=== PATIENT | male | born 1940 | race Hispanic/Latino ===

== ENCOUNTER 2017-07-14 12:52 | Inpatient (IN) | payer MEDICARE ==
[~2017-07-14] VITALS: Ht 165.1 cm; Wt 86.3 kg
[~2017-07-14 12:52] MED LIST: AMLO5TAB2 PO; ATOR40TA71 PO; DOCU100C19 PO; FERR325T22 PO; FINA5TAB41 PO; FURO20TA4 PO; GABA-531 PO; HYDR-4060 PO; ISOS60TA4 PO; LISI-617 PO; NITR0.4T50 SL; PANT40TA PO; RIVA20TA PO
[2017-07-14] MEDS ORDERED: SODIUM CHLORIDE 0.9% 1000ML 1,000 ML IV ONE ×2 (13:16→16:50)
[2017-07-14 13:20] LABS: BASOPHILS % (AUTO) 0.4 % (0.0-5.0); EOSINOPHILS % (AUTO) 0.8 % (0.0-8.0); HEMATOCRIT 39.6 % (42-54); LYMPHOCYTES % (AUTO) 8.9 % (21.0-51.0); MEAN CORPUSCULAR HGB CONC 33.3 g/dL (32.0-36.0); NEUTROPHILS % (AUTO) 81.9 % (40.0-77.0); PLATELET COUNT (AUTO) 206 K/uL (130-400); RED BLOOD CELL COUNT(AUTO) 4.39 MIL/uL (4.50-6.20); RED CELL DISTRIBUTION WIDTH 14.6 % (11.0-15.5); WHITE BLOOD COUNT (AUTO) 14.5 K/uL (4.8-10.8)
[2017-07-14 13:30] LABS: CREATININE 1.4 mg/dL (0.5-1.5)
[2017-07-14 14:45] LABS: APPEARANCE,URINE TURBID (CLEAR); BILIRUBIN,URINE MODERATE (NEGATIVE); COLOR,URINE YELLOW (YELLOW); GLUCOSE, URINE (UA) NEGATIVE (NEGATIVE); KETONES,URINE 15 mg/dL (NEGATIVE); LEUKOCYTE ESTERASE ,URINE LARGE (NEGATIVE); NITRATE,URINE POSITIVE (NEGATIVE); OCCULT BLOOD,URINE LARGE (NEGATIVE); PH,URINE 5.5 (5.0-8.0); PROTEIN,URINE >=300 (NEGATIVE)
[2017-07-14 15:01] LABS: BACTERIA,URINE Few /HPF (None Seen)
[2017-07-14 15:02] LABS: RBC,URINE >100 /HPF (0-1); SQUAMOUS EPITHELIAL CELL,UR Rare /HPF (0-2); WBC,URINE 51-100 /HPF (0-1)
[2017-07-14] MEDS ORDERED: CEFTRIAXONE SODIUM 1 GM ONE (15:40)
[2017-07-14 18:02] VITALS: BP 119/69
[2017-07-14] MEDS: SODIUM CHLORIDE 0.9% 1000ML 1,000 ML IV SCH (18:15)
[2017-07-14] MEDS ORDERED: ACETAMINOPHEN 325 MG TAB PO PRN ×2 (18:30)
[2017-07-14] MEDS ORDERED: ONDANSETRON HCL MDV 20ML 2 MG/ML VIAL IVP PRN (18:30)
[2017-07-14] MEDS ORDERED: LACTULOSE 20 GM/30 ML UDCUP PO PRN (18:30)
[2017-07-14] MEDS ORDERED: CLONIDINE HCL 0.1 MG TABLET PO PRN (18:30)
[2017-07-14 19:37] VITALS: BP 110/69
[2017-07-14] MEDS ORDERED: GLUCAGON 1MG KIT 1 MG ML IM PRN (22:00)
[2017-07-14] MEDS ORDERED: DEXTROSE 50%-WATER 50 ML DISP.SYRIN IV PRN (22:00)
[2017-07-15] VITALS: BP 107/62
[2017-07-15] MEDS ORDERED: POTASSIUM CHLORIDE 20MEQ/100ML 100 ML IV PRN (00:30)
[2017-07-15] MEDS ORDERED: CEFTRIAXONE 1GM/D5W 50ML 50 ML IV SCH (00:30)
[2017-07-15] MEDS ORDERED: IPRATROPIUM/ALBUTEROL SULFATE 3 ML SOLUTION IH PRN (00:30)
[2017-07-15] MEDS ORDERED: POTASSIUM CHLORIDE 10% ELIXIR 20 MEQ/15 ML UDCUP PO PRN (00:30)
[2017-07-15] MEDS ORDERED: HYDRALAZINE HCL 20 MG/ML VIAL IV PRN (00:30)
[2017-07-15] MEDS ORDERED: POTASSIUM CHLORIDE 20 MEQ ERTAB PO PRN (00:30)
[2017-07-15] MEDS ORDERED: LIDOCAINE HCL-MPF 1% 2ML VIAL IVP PRN (00:30)
[2017-07-15] MEDS ORDERED: LISI10TA7 PO (01:52)
[2017-07-15] MEDS ORDERED: METO25TA6 PO (01:52)
[2017-07-15 04:34] VITALS: BP 127/71
[2017-07-15] MEDS: SODIUM CHLORIDE 0.9% 1000ML 1,000 ML IV SCH (05:55)
[2017-07-15 06:47] LABS: HEMATOCRIT 37.1 % (42-54); MEAN CORPUSCULAR HEMOGLOBIN 31.4 pg (27.0-33.0); MEAN CORPUSCULAR VOLUME 89.8 fL (79-99); PLATELET COUNT (AUTO) 181 K/uL (130-400); RED BLOOD CELL COUNT(AUTO) 4.14 MIL/uL (4.50-6.20); RED CELL DISTRIBUTION WIDTH 14.1 % (11.0-15.5); WHITE BLOOD COUNT (AUTO) 11.6 K/uL (4.8-10.8)
[2017-07-15 06:56] LABS: POTASSIUM 4.1 mmol/L (3.5-5.1)
[2017-07-15] MEDS: INSULIN HUMULIN R 100 UNIT/ML 3ML SQ SCH ×4 (07:30→20:35)
[2017-07-15 08:00] VITALS: BP 136/72
[2017-07-15] MEDS: FAMOTIDINE 20MG TAB 20 MG TAB PO SCH (09:38)
[2017-07-15 11:44] VITALS: BP 151/87
[2017-07-15] MEDS: CEFTRIAXONE SODIUM 1 GM IVP SCH (15:00)
[2017-07-15] MEDS: GABAPENTIN 300 MG CAPSULE PO SCH ×2 (15:01→21:19)
[2017-07-15] MEDS: METOPROLOL TARTRATE 25 MG TAB PO SCH ×2 (15:01→17:57)
[2017-07-15] MEDS: PHENAZOPYRIDINE HCL 200 MG TABLET PO SCH ×2 (15:01→21:19)
[2017-07-15 16:42] VITALS: BP 149/75
[2017-07-15 19:25] VITALS: BP 149/89
[2017-07-15] MEDS: ATORVASTATIN CALCIUM 40 MG TABLET PO SCH (21:19)
[2017-07-16] VITALS (7 sets, daily range): BP systolic 92–161; BP diastolic 47–96
[2017-07-16 05:20] LABS: BASOPHILS % (AUTO) 0.5 % (0.0-5.0); EOSINOPHILS % (AUTO) 3.6 % (0.0-8.0); HEMATOCRIT 39.5 % (42-54); LYMPHOCYTES % (AUTO) 15.8 % (21.0-51.0); MEAN CORPUSCULAR HGB CONC 33.4 g/dL (32.0-36.0); MEAN CORPUSCULAR VOLUME 89.7 fL (79-99); MONOCYTES % (AUTO) 8.6 % (3.0-13.0); NEUTROPHILS % (AUTO) 71.5 % (40.0-77.0); PLATELET COUNT (AUTO) 192 K/uL (130-400); RED CELL DISTRIBUTION WIDTH 14.4 % (11.0-15.5)
[2017-07-16 05:32] LABS: CREATININE 0.9 mg/dL (0.5-1.5); POTASSIUM 3.8 mmol/L (3.5-5.1)
[2017-07-16] MEDS: INSULIN HUMULIN R 100 UNIT/ML 3ML SQ SCH ×4 (06:24→21:00)
[2017-07-16] MEDS: FUROSEMIDE 20 MG TABLET PO SCH (08:12)
[2017-07-16] MEDS: RIVAROXABAN 20 MG TABLET PO SCH (08:12)
[2017-07-16] MEDS: ISOSORBIDE MONO 60 MG TAB.SR PO SCH (08:12)
[2017-07-16] MEDS: FAMOTIDINE 20MG TAB 20 MG TAB PO SCH (08:12)
[2017-07-16] MEDS: PHENAZOPYRIDINE HCL 200 MG TABLET PO SCH ×3 (08:17→21:25)
[2017-07-16] MEDS: GABAPENTIN 300 MG CAPSULE PO SCH ×3 (08:17→21:25)
[2017-07-16] MEDS: FINASTERIDE 5 MG TABLET PO SCH (09:00)
[2017-07-16] MEDS: METOPROLOL TARTRATE 25 MG TAB PO SCH ×2 (12:00→16:52)
[2017-07-16] MEDS: CEFTRIAXONE SODIUM 1 GM IVP SCH (16:52)
[2017-07-16] MEDS: ATORVASTATIN CALCIUM 40 MG TABLET PO SCH (21:25)
[2017-07-17 00:40] VITALS: BP 150/81
[2017-07-17 02:41] LABS: APPEARANCE,URINE Clear (CLEAR); BILIRUBIN,URINE Small (NEGATIVE); COLOR,URINE Orange (YELLOW); GLUCOSE, URINE (UA) Negative (NEGATIVE); KETONES,URINE Negative (NEGATIVE); LEUKOCYTE ESTERASE ,URINE Small (NEGATIVE); NITRATE,URINE Positive (NEGATIVE); OCCULT BLOOD,URINE Negative (NEGATIVE); PH,URINE 5.5 (5.0-8.0); PROTEIN,URINE Negative (NEGATIVE)
[2017-07-17 02:48] LABS: BACTERIA,URINE None Seen /HPF (None Seen); RBC,URINE None Seen /HPF (0-1); SQUAMOUS EPITHELIAL CELL,UR Few /HPF (0-2)
[2017-07-17 04:30] VITALS: BP 142/77
[2017-07-17 05:57] LABS: HEMATOCRIT 38.3 % (42-54); MEAN CORPUSCULAR HGB CONC 34.7 g/dL (32.0-36.0); MEAN CORPUSCULAR VOLUME 89.4 fL (79-99); NUCLEATED RED BLOOD CELLS 0.1 % (0.0-0.19); PLATELET COUNT (AUTO) 200 K/uL (130-400); RED BLOOD CELL COUNT(AUTO) 4.29 MIL/uL (4.50-6.20); RED CELL DISTRIBUTION WIDTH 14.2 % (11.0-15.5); WHITE BLOOD COUNT (AUTO) 8.5 K/uL (4.8-10.8)
[2017-07-17 06:12] LABS: CREATININE 1.1 mg/dL (0.5-1.5)
[2017-07-17] MEDS: INSULIN HUMULIN R 100 UNIT/ML 3ML SQ SCH ×4 (06:38→21:00)
[2017-07-17 07:21] LABS: EOSINOPHILS % (MANUAL) 8 % (1-6); LYMPHOCYTES % (MANUAL) 15 % (22-44); MAN.DIFF COMMENT-IMPRESSION MANUAL DIFFERENTIAL; MONOCYTES % (MANUAL) 7 % (2-9); PLATELET MORPHOLOGY COMMENT ADEQUATE; REACTIVE LYMPHOCYTES 3 % (0-0); SEGMENTED NEUTROPHILS % 67 % (40-70)
[2017-07-17 08:00] VITALS: BP 132/85
[2017-07-17] MEDS: ISOSORBIDE MONO 60 MG TAB.SR PO SCH (09:53)
[2017-07-17] MEDS: RIVAROXABAN 20 MG TABLET PO SCH (09:54)
[2017-07-17] MEDS: FINASTERIDE 5 MG TABLET PO SCH (09:54)
[2017-07-17] MEDS: FUROSEMIDE 20 MG TABLET PO SCH (09:54)
[2017-07-17] MEDS: FAMOTIDINE 20MG TAB 20 MG TAB PO SCH (09:54)
[2017-07-17] MEDS: GABAPENTIN 300 MG CAPSULE PO SCH ×3 (09:54→21:42)
[2017-07-17] MEDS: PHENAZOPYRIDINE HCL 200 MG TABLET PO SCH ×2 (09:54→14:20)
[2017-07-17 11:00] VITALS: BP 133/56
[2017-07-17] MEDS: METOPROLOL TARTRATE 25 MG TAB PO SCH ×3 (14:20→19:28)
[2017-07-17 16:00] VITALS: BP 139/69
[2017-07-17] MEDS: CEFTRIAXONE SODIUM 1 GM IVP SCH (16:36)
[2017-07-17 20:00] VITALS: BP 118/68
[2017-07-17] MEDS: ATORVASTATIN CALCIUM 40 MG TABLET PO SCH (21:42)
[2017-07-18] VITALS: BP 122/76
[2017-07-18 03:56] VITALS: BP 118/70
[2017-07-18 06:28] LABS: BASOPHILS % (AUTO) 0.9 % (0.0-5.0); HEMATOCRIT 40.8 % (42-54); LYMPHOCYTES % (AUTO) 16.9 % (21.0-51.0); MEAN CORPUSCULAR HEMOGLOBIN 30.1 pg (27.0-33.0); MEAN CORPUSCULAR HGB CONC 33.6 g/dL (32.0-36.0); MEAN CORPUSCULAR VOLUME 89.5 fL (79-99); MONOCYTES % (AUTO) 8.2 % (3.0-13.0); PLATELET COUNT (AUTO) 206 K/uL (130-400); RED BLOOD CELL COUNT(AUTO) 4.56 MIL/uL (4.50-6.20); RED CELL DISTRIBUTION WIDTH 14.1 % (11.0-15.5); WHITE BLOOD COUNT (AUTO) 8.5 K/uL (4.8-10.8)
[2017-07-18] MEDS: INSULIN HUMULIN R 100 UNIT/ML 3ML SQ SCH ×2 (06:30→11:30)
[2017-07-18 06:36] LABS: CREATININE 1.2 mg/dL (0.5-1.5)
[2017-07-18] MEDS: RIVAROXABAN 20 MG TABLET PO SCH (08:36)
[2017-07-18] MEDS: FAMOTIDINE 20MG TAB 20 MG TAB PO SCH (08:36)
[2017-07-18] MEDS: GABAPENTIN 300 MG CAPSULE PO SCH (08:36)
[2017-07-18] MEDS: ISOSORBIDE MONO 60 MG TAB.SR PO SCH (08:37)
[2017-07-18] MEDS: FUROSEMIDE 20 MG TABLET PO SCH (08:37)
[2017-07-18] MEDS: FINASTERIDE 5 MG TABLET PO SCH (08:37)
[2017-07-18 09:00] VITALS: BP 142/60
[2017-07-18] MEDS ORDERED: LEVO500T2 PO (09:40)
[2017-07-18 12:21] VITALS: BP 101/66
== END 2017-07-18 13:10 | disposition home or self-care (01) | DRG 690 ==
LOC: EDH 12:52 → EDHIP 16:35 → OBSVTOIN 16:35 → 3CH 17:53
PROVIDERS: ADMIT Family Medicine; ATTEND Family Medicine
DX: N39.0 Urinary tract infection, site not specified (principal); E11.65 Type 2 diabetes mellitus with hyperglycemia; I11.0 Hypertensive heart disease with heart failure; I95.9 Hypotension, unspecified; I48.91 Unspecified atrial fibrillation; I50.32 Chronic diastolic (congestive) heart failure; B96.4 Proteus (mirabilis) (morganii) as the cause of diseases classified elsewhere; D64.9 Anemia, unspecified; E86.0 Dehydration; N40.1 Benign prostatic hyperplasia with lower urinary tract symptoms; N13.8 Other obstructive and reflux uropathy; F32.9 Major depressive disorder, single episode, unspecified; G89.29 Other chronic pain; I25.10 Atherosclerotic heart disease of native coronary artery without angina pectoris; I35.0 Nonrheumatic aortic (valve) stenosis; N40.0 Benign prostatic hyperplasia without lower urinary tract symptoms; J44.9 Chronic obstructive pulmonary disease, unspecified; G89.21 Chronic pain due to trauma; K21.9 Gastro-esophageal reflux disease without esophagitis; K44.9 Diaphragmatic hernia without obstruction or gangrene; Z86.73 Personal history of transient ischemic attack (TIA), and cerebral infarction without residual deficits; Z95.1 Presence of aortocoronary bypass graft; Z90.49 Acquired absence of other specified parts of digestive tract
CPT/HCPCS: 36415; 71045; 80048; 81001; 82550; 82948; 83605; 83880; 84484; 85025; 85027; 87088; 87186; 93005; 94640; 94664; A4218; J0696; J7030

== ENCOUNTER 2020-05-29 12:12 | Inpatient (IN) | payer MEDICARE ==
[~2020-05-29] VITALS: Ht 167.6 cm; Wt 79.4 kg
[~2020-05-29 12:12] MED LIST changes: +ALBU8.5H8 IH; +AMLO-257 PO; -AMLO5TAB2 PO; -DOCU100C19 PO; -FERR325T22 PO; -FURO20TA4 PO; -HYDR-4060 PO; +HYDR-4064 PO; -ISOS60TA4 PO; -LISI-617 PO; +LISI5TAB21 PO; -PANT40TA PO; +RANI150T7 PO
[2020-05-29 13:23] LABS: BASOPHILS % (AUTO) 0.4 % (0.0-5.0); EOSINOPHILS % (AUTO) 4.7 % (0.0-8.0); HEMATOCRIT 35.1 % (42-54); LYMPHOCYTES % (AUTO) 17.1 % (21.0-51.0); MEAN CORPUSCULAR HEMOGLOBIN 28.7 pg (27.0-33.0); MEAN CORPUSCULAR HGB CONC 32.5 g/dL (32.0-36.0); MEAN CORPUSCULAR VOLUME 88.4 fL (79-99); MONOCYTES % (AUTO) 6.5 % (3.0-13.0); NEUTROPHILS % (AUTO) 71.1 % (40.0-77.0); PLATELET COUNT (AUTO) 177 K/uL (130-400); RED BLOOD CELL COUNT(AUTO) 3.97 MIL/uL (4.50-6.20); RED CELL DISTRIBUTION WIDTH 14.5 % (11.0-15.5); WHITE BLOOD COUNT (AUTO) 9.8 K/uL (4.8-10.8)
[2020-05-29] MEDS ORDERED: ASPIRIN 325 MG TABLET ONE (13:52)
[2020-05-29 13:53] LABS: POTASSIUM 4.2 mmol/L (3.5-5.1)
[2020-05-29 13:54] LABS: INR 1.05 (0.85-1.15); PROTHROMBIN TIME 11.4 SEC (9.6-11.6)
[2020-05-29 13:56] LABS: PARTIAL THROMBOPLASTIN TIME 31.1 SEC (26.3-35.5)
[2020-05-29 14:00] LABS: ALBUMIN 3.7 g/dL (3.5-5.0); BILIRUBIN,TOTAL 0.6 mg/dL (0.2-1.0); TOTAL PROTEIN, SERUM 6.8 g/dL (6.0-8.3)
[2020-05-29] MEDS ORDERED: IOHEXOL-350 75 ML VIAL IV ONE (15:38)
[2020-05-29] MEDS: CEFTRIAXONE 1G VIAL IVP SCH (18:30)
[2020-05-29] MEDS ORDERED: SOLU-MEDROL 40MG VIAL IVP SCH (18:30)
[2020-05-29] MEDS ORDERED: IPRATROPIUM/ALBUTEROL SULFATE 3 ML SOLUTION IH PRN (18:30)
[2020-05-29 18:52] LABS: CHOLESTEROL 92 mg/dL (<200); HDL CHOLESTEROL 83 mg/dL (29-71); LDL DIRECT 18 mg/dL (0-99); TRIGLYCERIDES 91 mg/dL (30-200)
[2020-05-29] MEDS ORDERED: CEFTRIAXONE 1G VIAL ONE (20:21)
[2020-05-29] MEDS ORDERED: SOLU-MEDROL 40MG VIAL ONE (20:21)
[2020-05-29 20:43] LABS: APPEARANCE,URINE Clear (CLEAR); BILIRUBIN,URINE Negative (NEGATIVE); COLOR,URINE Yellow (YELLOW); GLUCOSE, URINE (UA) Negative (NEGATIVE); KETONES,URINE Negative (NEGATIVE); LEUKOCYTE ESTERASE ,URINE Moderate (NEGATIVE); NITRATE,URINE Positive (NEGATIVE); OCCULT BLOOD,URINE Negative (NEGATIVE); PROTEIN,URINE Negative (NEGATIVE)
[2020-05-29 20:53] LABS: BACTERIA,URINE Many /HPF (None Seen); MUCUS,URINE Few LPF (None Seen); SQUAMOUS EPITHELIAL CELL,UR 0-2 /HPF (0-2)
[2020-05-29] MEDS ORDERED: ALBUTEROL INHALER 90MCG/INH IH ONE (21:39)
[2020-05-29 22:57] VITALS: BP 148/82
[2020-05-30 03:00] VITALS: BP 140/80
[2020-05-30 05:20] LABS: BASOPHILS % (AUTO) 0.1 % (0.0-5.0); HEMATOCRIT 38.3 % (42-54); LYMPHOCYTES % (AUTO) 8.2 % (21.0-51.0); MEAN CORPUSCULAR HEMOGLOBIN 28.3 pg (27.0-33.0); MEAN CORPUSCULAR HGB CONC 32.1 g/dL (32.0-36.0); MONOCYTES % (AUTO) 0.9 % (3.0-13.0); NEUTROPHILS % (AUTO) 90.3 % (40.0-77.0); PLATELET COUNT (AUTO) 203 K/uL (130-400); RED BLOOD CELL COUNT(AUTO) 4.35 MIL/uL (4.50-6.20); RED CELL DISTRIBUTION WIDTH 14.2 % (11.0-15.5); WHITE BLOOD COUNT (AUTO) 8.9 K/uL (4.8-10.8)
[2020-05-30 05:52] LABS: POTASSIUM 4.4 mmol/L (3.5-5.1)
[2020-05-30 08:25] VITALS: BP 150/74
[2020-05-30] MEDS ORDERED: PHARMACY COMMUNICATION MISC SCH (10:00)
[2020-05-30] MEDS: ASPIRIN 81MG CHEW TAB PO SCH (10:14)
[2020-05-30 12:00] VITALS: BP 169/100
[2020-05-30] MEDS ORDERED: FURO20TA4 PO (13:09)
[2020-05-30] MEDS ORDERED: AMOX500C2 PO (13:09)
[2020-05-30] MEDS ORDERED: FUROSEMIDE 20 MG TABLET PO SCH (14:20)
[2020-05-30 16:00] VITALS: BP 147/74
[2020-05-30] MEDS: CEFTRIAXONE 1G VIAL IVP SCH (17:30)
[2020-05-30] MEDS: RIVAROXABAN 20 MG TABLET PO SCH (17:30)
[2020-05-30 20:00] VITALS: BP 167/87
[2020-05-31] VITALS: BP 158/72
[2020-05-31 04:00] VITALS: BP 154/86
[2020-05-31 06:13] LABS: BASOPHILS % (AUTO) 0.5 % (0.0-5.0); EOSINOPHILS % (AUTO) 1.3 % (0.0-8.0); HEMATOCRIT 39.4 % (42-54); LYMPHOCYTES % (AUTO) 16.8 % (21.0-51.0); MEAN CORPUSCULAR HGB CONC 32.7 g/dL (32.0-36.0); MEAN CORPUSCULAR VOLUME 88.5 fL (79-99); MONOCYTES % (AUTO) 5.8 % (3.0-13.0); NEUTROPHILS % (AUTO) 75.4 % (40.0-77.0); PLATELET COUNT (AUTO) 216 K/uL (130-400); RED BLOOD CELL COUNT(AUTO) 4.45 MIL/uL (4.50-6.20); RED CELL DISTRIBUTION WIDTH 14.7 % (11.0-15.5); WHITE BLOOD COUNT (AUTO) 10.7 K/uL (4.8-10.8)
[2020-05-31 06:34] LABS: BILIRUBIN,TOTAL 0.6 mg/dL (0.2-1.0); CREATININE 1.3 mg/dL (0.5-1.5); POTASSIUM 3.9 mmol/L (3.5-5.1); TOTAL PROTEIN, SERUM 7.6 g/dL (6.0-8.3)
[2020-05-31 07:54] VITALS: BP 145/49
[2020-05-31] MEDS ORDERED: M.V.I. IV [ADULT] 10 ML, THIAMINE HCL 100 MG, FOLIC ACID 1 MG in 0.9%NACL 1000ML 1,000 ML IV SCH (09:00)
[2020-05-31] MEDS ORDERED: FUROSEMIDE 20 MG TABLET PO SCH (09:42)
[2020-05-31] MEDS: RIVAROXABAN 20 MG TABLET PO SCH (09:44)
[2020-05-31] MEDS: ASPIRIN 81MG CHEW TAB PO SCH (09:46)
[2020-05-31] MEDS ORDERED: CEPH500T PO (09:48)
[2020-05-31 11:22] VITALS: BP 92/50
[2020-05-31 11:44] VITALS: BP 110/65
== END 2020-05-31 12:35 | disposition home or self-care (01) | DRG 292 ==
LOC: EDH 12:12 → EDHIP 17:23 → 4DH 21:32
PROVIDERS: ADMIT Internal Medicine; ATTEND Internal Medicine
DX: I11.0 Hypertensive heart disease with heart failure (principal); I44.2 Atrioventricular block, complete; J98.11 Atelectasis; N39.0 Urinary tract infection, site not specified; I50.43 Acute on chronic combined systolic (congestive) and diastolic (congestive) heart failure; I48.91 Unspecified atrial fibrillation; E11.9 Type 2 diabetes mellitus without complications; E78.5 Hyperlipidemia, unspecified; F10.10 Alcohol abuse, uncomplicated; F41.9 Anxiety disorder, unspecified; I25.10 Atherosclerotic heart disease of native coronary artery without angina pectoris; I35.0 Nonrheumatic aortic (valve) stenosis; I48.0 Paroxysmal atrial fibrillation; J44.9 Chronic obstructive pulmonary disease, unspecified; R53.81 Other malaise; B96.20 Unspecified Escherichia coli [E. coli] as the cause of diseases classified elsewhere; R13.10 Dysphagia, unspecified; T45.516A Underdosing of anticoagulants, initial encounter; Y92.89 Other specified places as the place of occurrence of the external cause; Z79.01 Long term (current) use of anticoagulants; Z79.899 Other long term (current) drug therapy; Z95.1 Presence of aortocoronary bypass graft; Z95.0 Presence of cardiac pacemaker; Z91.128 Patient's intentional underdosing of medication regimen for other reason; Z86.73 Personal history of transient ischemic attack (TIA), and cerebral infarction without residual deficits; Z83.3 Family history of diabetes mellitus; Z82.5 Family history of asthma and other chronic lower respiratory diseases; Z82.3 Family history of stroke; Z82.0 Family history of epilepsy and other diseases of the nervous system; Z82.49 Family history of ischemic heart disease and other diseases of the circulatory system; Z20.822 Contact with and (suspected) exposure to COVID-19
CPT/HCPCS: 36415; 70450; 70496; 70498; 71045; 71250; 80048; 80053; 80061; 81001; 82550; 82948; 83880; 84145; 84484; 85025; 85378; 85610; 85730; 86140; 87077; 87088; 87186; 87426; 93005; 93306; 93970; 97039; G0378; J0696; J2920; J3411; J3490; J7030; Q9967; U0003

== ENCOUNTER 2022-10-04 16:34 | Inpatient (IN) | payer MEDICARE ==
[~2022-10-04] VITALS: Ht 165.1 cm; Wt 79.6 kg
[~2022-10-04 16:34] MED LIST changes: +AMOX500C2 PO; +AZIT250T9 PO; +CEPH500T PO; +FURO20TA4 PO
[2022-10-04] MEDS ORDERED: LORAZEPAM 2 MG/ML 1 ML VIAL ONE (17:27)
[2022-10-04] MEDS ORDERED: LORAZEPAM 2 MG/ML 1 ML VIAL IVP ONE (17:30)
[2022-10-04 17:49] LABS: BASOPHILS # (AUTO) 0.02 K/uL (0.00-0.20); BASOPHILS % (AUTO) 0.1 % (0.0-5.0); EOSINOPHILS # (AUTO) 0.01 K/uL (0.00-0.70); EOSINOPHILS % (AUTO) 0.1 % (0.0-8.0); IMMATURE GRANULOCYTE ABSOLUTE 0.06 K/uL (0-1); LYMPHOCYTES % (AUTO) 6.9 % (21.0-51.0); MEAN CORPUSCULAR HGB CONC 33.3 g/dL (32.0-36.0); MEAN CORPUSCULAR VOLUME 90.1 fL (79-99); MONOCYTES # (AUTO) 1.3 K/uL (0.1-1.0); MONOCYTES % (AUTO) 9.6 % (3.0-13.0); NEUTROPHILS # (AUTO) 11.5 K/uL (1.8-7.7); NEUTROPHILS % (AUTO) 82.9 % (40.0-77.0); PLATELET COUNT (AUTO) 193 K/uL (130-400); RED BLOOD CELL COUNT(AUTO) 4.66 MIL/uL (4.50-6.20); RED CELL DISTRIBUTION WIDTH 13.8 % (11.0-15.5); WHITE BLOOD COUNT (AUTO) 13.8 K/uL (4.8-10.8)
[2022-10-04 17:56] LABS: CREATININE 1.2 mg/dL (0.5-1.5); POTASSIUM 3.9 mmol/L (3.5-5.1)
[2022-10-04 17:57] LABS: INR 1.01 (0.85-1.15); PROTHROMBIN TIME 11.7 SEC (9.6-11.6)
[2022-10-04 18:01] LABS: ALBUMIN 3.5 g/dL (3.5-5.0); BILIRUBIN,TOTAL 0.9 mg/dL (0.2-1.0)
[2022-10-04] MEDS ORDERED: CEFTRIAXONE 2GM VIAL IVPB ONE (18:30)
[2022-10-04 18:51] LABS: APPEARANCE,URINE CLOUDY (CLEAR); BILIRUBIN,URINE NEGATIVE (NEGATIVE); COLOR,URINE YELLOW (YELLOW); GLUCOSE, URINE (UA) NEGATIVE (NEGATIVE); KETONES,URINE NEGATIVE (NEGATIVE); LEUKOCYTE ESTERASE ,URINE 500 Leu/uL (NEGATIVE); NITRATE,URINE NEGATIVE (NEGATIVE); OCCULT BLOOD,URINE SMALL (NEGATIVE); PH,URINE 5.5 (5.0-8.0); PROTEIN,URINE 50 mg/dL (NEGATIVE)
[2022-10-04 18:56] LABS: ADD UA MICROSCOPIC YES
[2022-10-04 18:58] LABS: BACTERIA,URINE FEW /HPF (None Seen); MUCUS,URINE FEW LPF (None Seen); SQUAMOUS EPITHELIAL CELL,UR MOD /HPF (0-2); WBC,URINE 26-50 /HPF (0-1)
[2022-10-04] MEDS ORDERED: 0.9%NACL 1000ML 1,000 ML IV ONE (19:00)
[2022-10-04 19:45] LABS: RAPID GROUP A STREP negative (NEGATIVE)
[2022-10-04 19:55] LABS: INFLUENZA TYPE A Negative For Type A (NEGATIVE); INFLUENZA TYPE B Negative For Type B (NEGATIVE)
[2022-10-04 19:58] LABS: SARS-CoV-2, RNA, NAAT POSITIVE SARS CoV-2 (NEGATIVE)
[2022-10-04] MEDS ORDERED: MORPHINE 2 MG SYG ONE (20:59)
[2022-10-04] MEDS ORDERED: CEFTRIAXONE 1G VIAL 1 GM in 0.9%NACL 50ML 50 ML IV SCH (21:00)
[2022-10-04] MEDS ORDERED: HEPARIN 5,000 UNIT VIAL SQ SCH (21:00)
[2022-10-04] MEDS ORDERED: MORPHINE 4 MG SYG IV PRN (21:00)
[2022-10-04] MEDS ORDERED: MORPHINE 2 MG SYG IV PRN (21:00)
[2022-10-04] MEDS ORDERED: ONDANSETRON 4MG INJ IV PRN (21:00)
[2022-10-04] MEDS ORDERED: ALBUTEROL INHALER 90MCG/INH IH SCH (21:30)
[2022-10-05] VITALS (8 sets, daily range): BP systolic 114–158; BP diastolic 53–78; PULSE 60–86; RESP 18–24; TEMP 101; O2SAT 95–96
[2022-10-05] MEDS: ACETAMINOPHEN 325 MG TAB PO PRN ×3 (00:17→21:49)
[2022-10-05 06:37] LABS: BASOPHILS # (AUTO) 0.03 K/uL (0.00-0.20); BASOPHILS % (AUTO) 0.3 % (0.0-5.0); EOSINOPHILS # (AUTO) 0.01 K/uL (0.00-0.70); EOSINOPHILS % (AUTO) 0.1 % (0.0-8.0); HEMATOCRIT 39.7 % (42-54); IMMATURE GRANULOCYTE ABSOLUTE 0.05 K/uL (0-1); MEAN CORPUSCULAR HGB CONC 32.5 g/dL (32.0-36.0); MEAN CORPUSCULAR VOLUME 92.3 fL (79-99); MONOCYTES # (AUTO) 1.3 K/uL (0.1-1.0); MONOCYTES % (AUTO) 14.2 % (3.0-13.0); NEUTROPHILS # (AUTO) 6.6 K/uL (1.8-7.7); NEUTROPHILS % (AUTO) 73.8 % (40.0-77.0); PLATELET COUNT (AUTO) 150 K/uL (130-400); WHITE BLOOD COUNT (AUTO) 8.9 K/uL (4.8-10.8)
[2022-10-05 06:53] LABS: CREATININE 1.1 mg/dL (0.5-1.5); MAGNESIUM 1.9 mg/dL (1.80-2.40); PHOSPHORUS 2.8 mg/dL (2.5-4.9)
[2022-10-05] MEDS ORDERED: ENOXAPARIN SODIUM 40 MG/0.4 ML SYRINGE SQ SCH (09:00)
[2022-10-05] MEDS ORDERED: METOPROLOL TARTRATE 25 MG TAB PO SCH (09:00)
[2022-10-05] MEDS: FAMOTIDINE 20MG VIAL IV SCH (14:04)
[2022-10-05] MEDS: RIVAROXABAN 10 MG TABLET PO SCH (15:19)
[2022-10-05] MEDS ORDERED: ASCORBIC ACID 500 MG TAB PO ONE (16:26)
[2022-10-05] MEDS: GUAIFENESIN-DM 200/20 MG 10 ML PO SCH ×2 (17:31→22:27)
[2022-10-05] MEDS: IPRATROPIUM/ALBUTEROL SULFATE 3 ML SOLUTION IH SCH ×2 (18:00→23:24)
[2022-10-05] MEDS: CEFTRIAXONE 1G VIAL IVPB SCH (20:11)
[2022-10-06] VITALS (13 sets, daily range): BP systolic 99–134; BP diastolic 55–72; PULSE 58–69; RESP 18–22; O2SAT 95–100
[2022-10-06] MEDS: GUAIFENESIN-DM 200/20 MG 10 ML PO SCH ×4 (05:32→22:27)
[2022-10-06 05:34] LABS: BASOPHILS # (AUTO) 0.04 K/uL (0.00-0.20); BASOPHILS % (AUTO) 0.7 % (0.0-5.0); EOSINOPHILS # (AUTO) 0.08 K/uL (0.00-0.70); EOSINOPHILS % (AUTO) 1.5 % (0.0-8.0); HEMATOCRIT 38.6 % (42-54); IMMATURE GRANULOCYTE ABSOLUTE 0.03 K/uL (0-1); LYMPHOCYTES # (AUTO) 1.4 K/uL (1.0-4.8); LYMPHOCYTES % (AUTO) 25.7 % (21.0-51.0); MEAN CORPUSCULAR HEMOGLOBIN 29.7 pg (27.0-33.0); MEAN CORPUSCULAR HGB CONC 32.1 g/dL (32.0-36.0); MEAN CORPUSCULAR VOLUME 92.3 fL (79-99); MONOCYTES # (AUTO) 1.1 K/uL (0.1-1.0); MONOCYTES % (AUTO) 19.4 % (3.0-13.0); NEUTROPHILS # (AUTO) 2.8 K/uL (1.8-7.7); NEUTROPHILS % (AUTO) 52.1 % (40.0-77.0); PLATELET COUNT (AUTO) 153 K/uL (130-400); RED BLOOD CELL COUNT(AUTO) 4.18 MIL/uL (4.50-6.20); RED CELL DISTRIBUTION WIDTH 13.7 % (11.0-15.5); WHITE BLOOD COUNT (AUTO) 5.5 K/uL (4.8-10.8)
[2022-10-06 06:34] LABS: ALBUMIN 2.9 g/dL (3.5-5.0); BILIRUBIN,TOTAL 0.3 mg/dL (0.2-1.0); MAGNESIUM 1.9 mg/dL (1.80-2.40); POTASSIUM 3.7 mmol/L (3.5-5.1); TOTAL PROTEIN, SERUM 6.2 g/dL (6.0-8.3)
[2022-10-06] MEDS: IPRATROPIUM/ALBUTEROL SULFATE 3 ML SOLUTION IH SCH ×4 (07:05→23:35)
[2022-10-06] MEDS ORDERED: METOPROLOL TARTRATE 1 MG/ML 5ML VIAL IV ONE (09:55)
[2022-10-06] MEDS ORDERED: METOPROLOL TARTRATE 1 MG/ML 5ML VIAL IV PRN (10:00)
[2022-10-06] MEDS: FAMOTIDINE 20MG VIAL IV SCH (10:01)
[2022-10-06] MEDS: ASCORBIC ACID 500 MG TAB PO SCH (10:01)
[2022-10-06] MEDS ORDERED: SOLU-MEDROL 40MG VIAL IVP ONE (11:42)
[2022-10-06] MEDS: METOPROLOL SUCCINATE 25 MG TAB.SR.24H PO SCH ×2 (11:58→20:25)
[2022-10-06] MEDS: RIVAROXABAN 10 MG TABLET PO SCH (14:22)
[2022-10-06] MEDS: AZITHROMYCIN 500MG+NS 250ML IVPB SCH (14:23)
[2022-10-06] MEDS ORDERED: IOHEXOL-350 75 ML VIAL IV ONE (15:05)
[2022-10-06] MEDS: ACETAMINOPHEN 325 MG TAB PO PRN (15:55)
[2022-10-06] MEDS: SOLU-MEDROL 40MG VIAL IVP SCH (20:25)
[2022-10-06] MEDS: CEFTRIAXONE 1G VIAL IVPB SCH (20:26)
[2022-10-07] VITALS (12 sets, daily range): BP systolic 116–150; BP diastolic 68–83; PULSE 56–69; RESP 16–19; O2SAT 98–99
[2022-10-07 03:44] LABS: HEMATOCRIT 40.5 % (42-54); MEAN CORPUSCULAR HEMOGLOBIN 29.6 pg (27.0-33.0); MEAN CORPUSCULAR HGB CONC 33.1 g/dL (32.0-36.0); MEAN CORPUSCULAR VOLUME 89.4 fL (79-99); RED BLOOD CELL COUNT(AUTO) 4.53 MIL/uL (4.50-6.20); RED CELL DISTRIBUTION WIDTH 13.6 % (11.0-15.5); WHITE BLOOD COUNT (AUTO) 5.5 K/uL (4.8-10.8)
[2022-10-07 04:11] LABS: ALBUMIN 3.1 g/dL (3.5-5.0); BILIRUBIN,TOTAL 0.3 mg/dL (0.2-1.0); CREATININE 1.1 mg/dL (0.5-1.5); MAGNESIUM 1.9 mg/dL (1.80-2.40); POTASSIUM 4.2 mmol/L (3.5-5.1); TOTAL PROTEIN, SERUM 6.7 g/dL (6.0-8.3)
[2022-10-07] MEDS: GUAIFENESIN-DM 200/20 MG 10 ML PO SCH ×4 (04:56→21:33)
[2022-10-07] MEDS: IPRATROPIUM/ALBUTEROL SULFATE 3 ML SOLUTION IH SCH ×4 (07:22→23:30)
[2022-10-07] MEDS ORDERED: LACTULOSE 20 GM/30 ML UDCUP PO ONE (08:00)
[2022-10-07] MEDS: SOLU-MEDROL 40MG VIAL IVP SCH (08:29)
[2022-10-07] MEDS: RIVAROXABAN 10 MG TABLET PO SCH (08:30)
[2022-10-07] MEDS: FAMOTIDINE 20MG VIAL IV SCH (08:30)
[2022-10-07] MEDS: ASCORBIC ACID 500 MG TAB PO SCH (08:30)
[2022-10-07] MEDS: METOPROLOL SUCCINATE 25 MG TAB.SR.24H PO SCH ×2 (08:30→20:28)
[2022-10-07] MEDS: THIAMINE HCL 100 MG TABLET PO SCH (09:45)
[2022-10-07] MEDS: AZITHROMYCIN 500MG+NS 250ML IVPB SCH (11:15)
[2022-10-07] MEDS: CEFTRIAXONE 1G VIAL IVPB SCH (20:26)
[2022-10-07] MEDS ORDERED: LEVO-70 PO (21:53)
[2022-10-07] MEDS ORDERED: DEXA6TAB PO (21:53)
[2022-10-07] MEDS ORDERED: ALBUHFA IH (21:53)
[2022-10-08] VITALS (12 sets, daily range): BP systolic 125–186; BP diastolic 66–97; PULSE 63–75; RESP 17–20; O2SAT 94–96
[2022-10-08] MEDS: GUAIFENESIN-DM 200/20 MG 10 ML PO SCH ×4 (04:04→21:33)
[2022-10-08 04:14] LABS: HEMATOCRIT 37.7 % (42-54); MEAN CORPUSCULAR HEMOGLOBIN 29.7 pg (27.0-33.0); MEAN CORPUSCULAR HGB CONC 32.9 g/dL (32.0-36.0); MEAN CORPUSCULAR VOLUME 90.2 fL (79-99); RED BLOOD CELL COUNT(AUTO) 4.18 MIL/uL (4.50-6.20); RED CELL DISTRIBUTION WIDTH 13.6 % (11.0-15.5); WHITE BLOOD COUNT (AUTO) 12.2 K/uL (4.8-10.8)
[2022-10-08 04:36] LABS: BILIRUBIN,TOTAL 0.2 mg/dL (0.2-1.0); POTASSIUM 4.2 mmol/L (3.5-5.1); TOTAL PROTEIN, SERUM 6.2 g/dL (6.0-8.3)
[2022-10-08] MEDS: IPRATROPIUM/ALBUTEROL SULFATE 3 ML SOLUTION IH SCH ×3 (06:40→19:02)
[2022-10-08] MEDS ORDERED: LACTULOSE 20 GM/30 ML UDCUP PO PRN (08:00)
[2022-10-08] MEDS: DEXAMETHASONE 4 MG TAB PO SCH (08:27)
[2022-10-08] MEDS: ASCORBIC ACID 500 MG TAB PO SCH (08:27)
[2022-10-08] MEDS: METOPROLOL SUCCINATE 25 MG TAB.SR.24H PO SCH ×2 (08:28→21:32)
[2022-10-08] MEDS: THIAMINE HCL 100 MG TABLET PO SCH (08:28)
[2022-10-08] MEDS: FAMOTIDINE 20MG VIAL IV SCH (08:28)
[2022-10-08] MEDS: RIVAROXABAN 10 MG TABLET PO SCH (09:10)
[2022-10-08] MEDS: AZITHROMYCIN 500MG+NS 250ML IVPB SCH (11:23)
[2022-10-08] MEDS: CEFTRIAXONE 1G VIAL IVPB SCH (21:33)
[2022-10-09] VITALS (13 sets, daily range): BP systolic 135–173; BP diastolic 67–82; PULSE 62–79; RESP 17–21; O2SAT 94–99
[2022-10-09] MEDS: IPRATROPIUM/ALBUTEROL SULFATE 3 ML SOLUTION IH SCH ×5 (02:01→23:39)
[2022-10-09] MEDS: GUAIFENESIN-DM 200/20 MG 10 ML PO SCH ×4 (04:43→22:59)
[2022-10-09 05:24] LABS: HEMATOCRIT 37.6 % (42-54); MEAN CORPUSCULAR HEMOGLOBIN 29.4 pg (27.0-33.0); MEAN CORPUSCULAR HGB CONC 33.2 g/dL (32.0-36.0); MEAN CORPUSCULAR VOLUME 88.5 fL (79-99); RED BLOOD CELL COUNT(AUTO) 4.25 MIL/uL (4.50-6.20); RED CELL DISTRIBUTION WIDTH 13.6 % (11.0-15.5); WHITE BLOOD COUNT (AUTO) 13.7 K/uL (4.8-10.8)
[2022-10-09 05:35] LABS: BILIRUBIN,TOTAL 0.2 mg/dL (0.2-1.0); POTASSIUM 3.9 mmol/L (3.5-5.1); TOTAL PROTEIN, SERUM 6.3 g/dL (6.0-8.3)
[2022-10-09] MEDS: DEXAMETHASONE 4 MG TAB PO SCH (10:14)
[2022-10-09] MEDS: FAMOTIDINE 20MG VIAL IV SCH (10:14)
[2022-10-09] MEDS: METOPROLOL SUCCINATE 25 MG TAB.SR.24H PO SCH ×2 (10:14→20:39)
[2022-10-09] MEDS: ASCORBIC ACID 500 MG TAB PO SCH (10:15)
[2022-10-09] MEDS: AZITHROMYCIN 500MG+NS 250ML IVPB SCH (10:15)
[2022-10-09] MEDS: THIAMINE HCL 100 MG TABLET PO SCH (10:15)
[2022-10-09] MEDS ORDERED: HYDRALAZINE 20MG/ML VIAL IV PRN (12:00)
[2022-10-09] MEDS ORDERED: LOSARTAN 25 MG TABLET PO SCH (12:00)
[2022-10-09] MEDS: RIVAROXABAN 10 MG TABLET PO SCH (20:38)
[2022-10-09] MEDS: CEFTRIAXONE 1G VIAL IVPB SCH (20:39)
[2022-10-10] VITALS (10 sets, daily range): BP systolic 123–165; BP diastolic 58–76; PULSE 65–87; RESP 18–20; O2SAT 96–98
[2022-10-10] MEDS: GUAIFENESIN-DM 200/20 MG 10 ML PO SCH ×4 (04:47→22:15)
[2022-10-10 05:21] LABS: HEMATOCRIT 42.8 % (42-54); MEAN CORPUSCULAR HEMOGLOBIN 29.4 pg (27.0-33.0); MEAN CORPUSCULAR HGB CONC 32.9 g/dL (32.0-36.0); MEAN CORPUSCULAR VOLUME 89.4 fL (79-99); RED BLOOD CELL COUNT(AUTO) 4.79 MIL/uL (4.50-6.20); RED CELL DISTRIBUTION WIDTH 13.3 % (11.0-15.5); WHITE BLOOD COUNT (AUTO) 16.5 K/uL (4.8-10.8)
[2022-10-10 05:39] LABS: ALBUMIN 3.7 g/dL (3.5-5.0); BILIRUBIN,TOTAL 0.3 mg/dL (0.2-1.0); CREATININE 0.9 mg/dL (0.5-1.5); MAGNESIUM 2.1 mg/dL (1.80-2.40); POTASSIUM 4.3 mmol/L (3.5-5.1); TOTAL PROTEIN, SERUM 7.4 g/dL (6.0-8.3)
[2022-10-10] MEDS: IPRATROPIUM/ALBUTEROL SULFATE 3 ML SOLUTION IH SCH ×4 (06:31→23:38)
[2022-10-10] MEDS: FAMOTIDINE 20MG VIAL IV SCH (10:21)
[2022-10-10] MEDS: ZOSYN 3.375GM +NS 50ML IVPB SCH ×2 (10:21→17:32)
[2022-10-10] MEDS: ASCORBIC ACID 500 MG TAB PO SCH (10:22)
[2022-10-10] MEDS: METOPROLOL SUCCINATE 25 MG TAB.SR.24H PO SCH ×2 (10:22→22:15)
[2022-10-10] MEDS: RIVAROXABAN 10 MG TABLET PO SCH (10:22)
[2022-10-10] MEDS: LOSARTAN 25 MG TABLET PO SCH ×2 (10:22→22:15)
[2022-10-10] MEDS: THIAMINE HCL 100 MG TABLET PO SCH (10:22)
[2022-10-11] VITALS (9 sets, daily range): BP systolic 132–160; BP diastolic 61–84; PULSE 60–78; RESP 17–20; O2SAT 96–98
[2022-10-11] MEDS: RIVAROXABAN 10 MG TABLET PO SCH (10:00)
[2022-10-11] MEDS: ASCORBIC ACID 500 MG TAB PO SCH (10:00)
[2022-10-11] MEDS: FAMOTIDINE 20MG VIAL IV SCH (10:00)
[2022-10-11] MEDS: LOSARTAN 25 MG TABLET PO SCH ×2 (10:00→20:48)
[2022-10-11] MEDS: ZOSYN 3.375GM +NS 50ML IVPB SCH ×2 (10:00→14:30)
[2022-10-11] MEDS: METOPROLOL SUCCINATE 25 MG TAB.SR.24H PO SCH ×2 (10:00→20:48)
[2022-10-11] MEDS: GUAIFENESIN-DM 200/20 MG 10 ML PO SCH ×3 (10:27→20:49)
[2022-10-11 10:29] LABS: BILIRUBIN,TOTAL 0.3 mg/dL (0.2-1.0); CREATININE 1.1 mg/dL (0.5-1.5); TOTAL PROTEIN, SERUM 6.2 g/dL (6.0-8.3)
[2022-10-11] MEDS: THIAMINE HCL 100 MG TABLET PO SCH (11:14)
[2022-10-11] MEDS: IPRATROPIUM/ALBUTEROL SULFATE 3 ML SOLUTION IH SCH ×3 (11:20→23:15)
[2022-10-11 14:36] LABS: HEMATOCRIT 38.7 % (42-54); MEAN CORPUSCULAR HEMOGLOBIN 29.9 pg (27.0-33.0); MEAN CORPUSCULAR HGB CONC 33.1 g/dL (32.0-36.0); MEAN CORPUSCULAR VOLUME 90.4 fL (79-99); RED BLOOD CELL COUNT(AUTO) 4.28 MIL/uL (4.50-6.20); RED CELL DISTRIBUTION WIDTH 13.4 % (11.0-15.5); WHITE BLOOD COUNT (AUTO) 12.5 K/uL (4.8-10.8)
[2022-10-12] VITALS (7 sets, daily range): BP systolic 126–142; BP diastolic 61–76; PULSE 58–75; RESP 17–20; O2SAT 95–96
[2022-10-12] MEDS: ZOSYN 3.375GM +NS 50ML IVPB SCH ×2 (00:22→08:44)
[2022-10-12] MEDS: GUAIFENESIN-DM 200/20 MG 10 ML PO SCH ×2 (03:49→10:27)
[2022-10-12 05:53] LABS: HEMATOCRIT 40.6 % (42-54); MEAN CORPUSCULAR HGB CONC 32.5 g/dL (32.0-36.0); MEAN CORPUSCULAR VOLUME 92.3 fL (79-99); RED BLOOD CELL COUNT(AUTO) 4.4 MIL/uL (4.50-6.20); RED CELL DISTRIBUTION WIDTH 13.4 % (11.0-15.5); WHITE BLOOD COUNT (AUTO) 12.4 K/uL (4.8-10.8)
[2022-10-12 06:17] LABS: ALBUMIN 2.9 g/dL (3.5-5.0); BILIRUBIN,TOTAL 0.5 mg/dL (0.2-1.0); CREATININE 1.3 mg/dL (0.5-1.5); POTASSIUM 4.2 mmol/L (3.5-5.1); TOTAL PROTEIN, SERUM 6.2 g/dL (6.0-8.3)
[2022-10-12] MEDS: IPRATROPIUM/ALBUTEROL SULFATE 3 ML SOLUTION IH SCH ×2 (06:39→12:00)
[2022-10-12] MEDS: FAMOTIDINE 20MG VIAL IV SCH (08:45)
[2022-10-12] MEDS: RIVAROXABAN 10 MG TABLET PO SCH (08:45)
[2022-10-12] MEDS: ASCORBIC ACID 500 MG TAB PO SCH (08:45)
[2022-10-12] MEDS: METOPROLOL SUCCINATE 25 MG TAB.SR.24H PO SCH (08:45)
[2022-10-12] MEDS: LOSARTAN 25 MG TABLET PO SCH (08:45)
[2022-10-12] MEDS: THIAMINE HCL 100 MG TABLET PO SCH (08:45)
== END 2022-10-12 17:44 | DRG 177 ==
LOC: EDH 16:34 → EDHIP 20:39 → 2AH 10-05 08:27 → 3AH 10-08 22:34
PROVIDERS: ADMIT Internal Medicine; ATTEND Internal Medicine
DX: U07.1 COVID-19 (principal); J12.82 Pneumonia due to coronavirus disease 2019; J96.91 Respiratory failure, unspecified with hypoxia; N39.0 Urinary tract infection, site not specified; J44.0 Chronic obstructive pulmonary disease with (acute) lower respiratory infection; Z16.24 Resistance to multiple antibiotics; D68.59 Other primary thrombophilia; I48.91 Unspecified atrial fibrillation; I10 Essential (primary) hypertension; B96.20 Unspecified Escherichia coli [E. coli] as the cause of diseases classified elsewhere; E66.09 Other obesity due to excess calories; G62.9 Polyneuropathy, unspecified; K21.9 Gastro-esophageal reflux disease without esophagitis; E78.00 Pure hypercholesterolemia, unspecified; E86.0 Dehydration; I25.10 Atherosclerotic heart disease of native coronary artery without angina pectoris; N40.0 Benign prostatic hyperplasia without lower urinary tract symptoms; Z79.01 Long term (current) use of anticoagulants; Z82.0 Family history of epilepsy and other diseases of the nervous system; Z82.3 Family history of stroke; Z82.49 Family history of ischemic heart disease and other diseases of the circulatory system; Z82.5 Family history of asthma and other chronic lower respiratory diseases; Z83.3 Family history of diabetes mellitus; Z87.442 Personal history of urinary calculi; Z95.1 Presence of aortocoronary bypass graft; Z95.810 Presence of automatic (implantable) cardiac defibrillator; Z68.29 Body mass index [BMI] 29.0-29.9, adult
CPT/HCPCS: 36415; 70450; 71045; 71270; 80048; 80053; 81001; 82550; 82948; 83605; 83735; 84100; 84145; 84484; 85025; 85027; 85610; 85730; 87040; 87077; 87088; 87186; 87635; 87804; 87880; 93005; 94640; 94664; 97039; C9803; G0378; J0456; J0696; J1644; J2060; J2270; J2543; J2920; J3490; J8540; Q9967